=== PATIENT | male | born 1965 | race Caucasian/White ===

== ENCOUNTER 2022-08-16 14:40 | Outpatient (RCR) | payer OTHER ==
[~2022-08-16 14:40] MED LIST: FLEXERIL10 MG PO; LORTAB 7.5/5001 TAB PO; NO HOME MEDICATIONS
== END 2022-09-02 | disposition home or self-care (01) ==
LOC: WSOH
DX: M48.07 Spinal stenosis, lumbosacral region (principal); E11.9 Type 2 diabetes mellitus without complications; E03.9 Hypothyroidism, unspecified; G47.30 Sleep apnea, unspecified; Y99.0 Civilian activity done for income or pay